=== PATIENT | male | born 1985 | race Two or more races ===

== ENCOUNTER → 2017-12-25 | Emergency (ER) | payer OTHER ==
[~2017-12-25] VITALS: Ht 180.3 cm; Wt 113.4 kg
[~2017-12-25] MED LIST: KETO10TA2 PO; NORFLEX100MG PO
== END | disposition home or self-care (01) ==
LOC: ER 08:02
DX: M54.5 Low back pain (principal)

== ENCOUNTER 2021-09-07 19:15 | Outpatient (CLI) | payer OTHER | END 2021-09-07 23:00 | disposition home or self-care (01) | LOC: LAB 19:15 | PROVIDERS: ATTEND Obstetrics & Gynecology | DX: Z20.818 Contact with and (suspected) exposure to other bacterial communicable diseases (principal); Z20.828 Contact with and (suspected) exposure to other viral communicable diseases ==

== ENCOUNTER 2025-08-27 04:27 | Emergency (ER) | payer OTHER ==
[~2025-08-27] VITALS: Ht 180.3 cm; Wt 125.2 kg
[2025-08-27 04:56] VITALS: BP 130/80; O2SAT 96
[2025-08-27] MEDS ORDERED: BENZONATATE 100 MG CAPSULE PO ONE (07:30)
[2025-08-27] MEDS ORDERED: ALBUTEROL SULFATE 3 ML/2.5 MG AMPUL.NEB IH SCH (07:30)
[2025-08-27] MEDS ORDERED: ALBUTEROL SULFATE 3 ML/2.5 MG AMPUL.NEB IH ONE (10:05)
== END 2025-08-27 15:00 | disposition home or self-care (01) ==
LOC: ER 04:27
DX: R05.8 Other specified cough (principal)